=== PATIENT | male | born 1960 | race Two or more races ===

== ENCOUNTER 2017-02-28 15:18 | Emergency (ER) | payer MEDICAID ==
[~2017-02-28] VITALS: Ht 172.7 cm; Wt 81.6 kg
[2017-02-28 15:36] VITALS: BP 149/92
== END 2017-02-28 16:34 | disposition left against medical advice (07) ==
LOC: EDBD 15:18 → ER 15:26
DX: R53.1 Weakness (principal); R42 Dizziness and giddiness; Z53.21 Procedure and treatment not carried out due to patient leaving prior to being seen by health care provider

== ENCOUNTER 2021-04-11 20:19 | Emergency (ER) | payer MEDICAID, OTHER ==
[~2021-04-11] VITALS: Ht 165.1 cm; Wt 88.5 kg
[2021-04-11 20:39] VITALS: BP 164/100
== END 2021-04-11 22:57 | disposition left against medical advice (07) ==
LOC: ER 20:19
DX: R21 Rash and other nonspecific skin eruption (principal); Z53.21 Procedure and treatment not carried out due to patient leaving prior to being seen by health care provider